=== PATIENT | male | born 1965 | race Caucasian/White ===

== ENCOUNTER 2017-06-12 09:37 | Emergency (ER) | payer BC ==
[2017-06-12 11:28] VITALS: BP 121/73
--- NOTE | 2017-06-12 11:47 | ED ---
Throat Pain/Nasal Congestion - HPI Summary HPI Summary: 51 yr old male with the complaint of right eye irritation, cloudy discharge and some lower eyelid swelling. Onset of symptoms was two days ago. No change in vision, No pain in the eye. No change in vision. - History of Current Complaint Chief Complaint: UCEye Time Seen by Provider: 06/12/17 11:32 - Allergies/Home Medications Allergies/Adverse Reactions: Allergies Allergy/AdvReac Type Severity Reaction Status Date / Time No Known Allergies Allergy Verified 06/12/17 11:28 Home Medications: Home Medications Aspirin [Aspirin 81 MG TAB] 162 mg PO PRN 06/12/17 [History] PMH/Surg Hx/FS Hx/Imm Hx Previously Healthy: Yes - Surgical History Surgery Procedure, Year, and Place: Bi-lat knee orthoscopic, appy Infectious Disease History: No Infectious Disease History: Denies: Traveled Outside the in Last 30 Days - Family History Known Family History: Positive: None - Social History Alcohol Use: Rare Substance Use Type: Reports: None Smoking Status (MU): Heavy Every Day Tobacco Smoker Type: Cigarettes Amount Used/How Often: 1/2 ppd Length of Time of Smoking/Using Tobacco: since age 13 Have You Smoked in the Last Year: Yes Review of Systems Positive: Drainage, Other - eyelid swelling All Other Systems Reviewed And Are Negative: Yes Physical Exam Triage Information Reviewed: Yes Vital Signs On Initial Exam: Initial Vitals Temp Pulse Resp BP Pulse Ox 98.4 F 74 16 121/73 100 06/12/17 11:18 06/12/17 11:18 06/12/17 11:18 06/12/17 11:18 06/12/17 11:18 Vital Signs Reviewed: Yes Appearance: Positive: Well-Appearing, No Pain Distress Skin: Positive: Warm Head/Face: Positive: Normal Head/Face Inspection Eyes: Positive: EOMI, Conjunctiva Inflammed - right greater than the left ENT: Positive: Normal ENT inspection, TMs normal Neck: Positive: Nontender Respiratory/Lung Sounds: Positive: Clear to Auscultation, Breath Sounds Present Cardiovascular: Positive: RRR. Negative: Murmur Musculoskeletal: Positive: Strength/ROM Intact Neurological: Positive: Sensory/Motor Intact, Alert, Oriented to Person Place, Time, CN Intact II-III Psychiatric: Positive: Normal Diagnostics - Vital Signs Vital Signs Temp Pulse Resp BP Pulse Ox 06/12/17 11:18 98.4 F 74 16 121/73 100 - Laboratory Lab Statement: Any lab studies that have been ordered have been reviewed, and results considered in the medical decision making process. EENT Course/Dx - Course Course Of Treatment: 51 yr old with conjunctivits, and lower eyelid cellulitis. DC home on sulfa eye drops and keflex. - Diagnoses Provider Diagnoses: Conjunctivitis, Cellulitis of right lower eyelid Discharge - Discharge Plan Condition: Good Disposition: HOME Prescriptions: Cephalexin CAP* [Keflex CAP*] 500 mg PO QID #40 cap Sulfacetamide 10 % OPTH.RAYMOND* [Sulamyd 10% Opth*] 1 drop BOTH EYES Q4H #1 btl Patient Education Materials: Conjunctivitis (ED), Cellulitis (ED) Forms: *Work Release Referrals: Paulina Giron MD [Medical Doctor] - 2 Days
== END 2017-06-12 11:56 | disposition home or self-care (01) ==
LOC: UCCORT 09:37
DX: H10.9 Unspecified conjunctivitis (principal); H00.032 Abscess of right lower eyelid; Z72.0 Tobacco use
CPT/HCPCS: 99202; G0463

== ENCOUNTER 2017-06-20 09:16 | Emergency (ER) | payer BC ==
[2017-06-20] MEDS ORDERED: Albuterol/Ipratropium NEB.SOL* Albuterol 2.5 MG/Ipratropium 0.5 MG 3 ML INH ONE (10:26)
[2017-06-20] MEDS ORDERED: predniSONE TAB* 20 MG PO ONE (10:26)
--- NOTE | 2017-06-20 10:28 | UC ---
Respiratory Complaint HPI - HPI Summary HPI Summary: 51 y/o male presents to the urgent care c/o persistent productive cough, Nasal congestion, with fever and SOB for the past week. Pt reports he was seen here at the clinic on 06/12/2017 for RT eye conjunctivitis. He was Rx ophthalmic drops and Cephalexin. His cough was improving at the beginning of the ABX treatment. but now has gotten worse since since now he is producing a green sputum. Pt has been taking Teraflu, Mucinex PO w/o any improvement of symptoms. Pt states he is a smoker. His fever is subjective at home with sweating at night time. Pt denies chest pain, abdominal Pain, N/V/D - History of Current Complaint Chief Complaint: UCRespiratory Stated Complaint: CHEST CONGESTION, COUGH Time Seen by Provider: 06/20/17 09:38 Hx Obtained From: Patient Onset/Duration: Gradual Onset, Lasting Weeks - 1 week, Still Present Severity Initially: Mild Severity Currently: Moderate Pain Intensity: 0 Pain Scale Used: 0-10 Numeric Character: Cough: Productive, Sputum Description: - green Aggravating Factors: Deep Breaths, Recumbent Position Alleviating Factors: OTC Meds Associated Signs And Symptoms: Positive: Dyspnea, Fever - subjective at home, Wheezing, URI, Nasal Congestion. Negative: Pleuritic Chest Pain - Risk Factors Pulmonary Embolism Risk Factors: Negative Cardiac Risk Factors: Negative, Smoking Pseudomonas Risk Factors: Negative Tuberculosis Risk Factors: Negative - Allergies/Home Medications Allergies/Adverse Reactions: Allergies Allergy/AdvReac Type Severity Reaction Status Date / Time No Known Allergies Allergy Verified 06/20/17 09:45 Home Medications: Home Medications Dextromethorphan-Guaifenesin [Mucinex Fast-Max Dm Max 20-400 mg/20Ml] 30 ml PO SEE INSTRUCTIONS PRN 06/20/17 [History Confirmed 06/20/17] PMH/Surg Hx/FS Hx/Imm Hx Previously Healthy: Yes - Pt denies PMHX - Surgical History Surgical History: Yes Surgery Procedure, Year, and Place: Bilateral Knee Arthroscopies, Appendectomy - Family History Known Family History: Positive: None - Pt denies FMHX - Social History Occupation: Employed Full-time Lives: With Family Alcohol Use: Rare Substance Use Type: None Smoking Status (MU): Heavy Every Day Tobacco Smoker Type: Cigarettes Amount Used/How Often: 1/2 PPD Length of Time of Smoking/Using Tobacco: Since Age 13 Have You Smoked in the Last Year: Yes - Immunization History Most Recent Influenza Vaccination: Not the 2016/2017 Season Review of Systems Constitutional: Fever - subjective at home Skin: Negative Eyes: Negative ENT: Nasal Discharge - yellowish discharge, Sinus Congestion Respiratory: Shortness Of Breath, Cough - productive with green sputum Cardiovascular: Negative Gastrointestinal: Negative Genitourinary: Negative Motor: Negative Neurovascular: Negative Musculoskeletal: Negative Neurological: Negative Psychological: Negative Is Patient Immunocompromised?: No All Other Systems Reviewed And Are Negative: Yes Physical Exam Triage Information Reviewed: Yes Appearance: Well-Appearing, No Pain Distress, Well-Nourished, Obese Vital Signs: Initial Vital Signs Temp 98.9 F 06/20/17 09:42 Pulse 88 06/20/17 09:42 Resp 20 06/20/17 09:42 BP 107/70 06/20/17 09:42 Pulse Ox 94 06/20/17 09:42 Vital Signs Reviewed: Yes Eye Exam: Normal Eyes: Positive: Conjunctiva Clear - PERRLA, EOMI, fundi grossly normal ENT: Positive: Normal ENT inspection, Hearing grossly normal, Pharynx normal, Nasal congestion - edematous and erythemaotus nasal mucosa, Nasal drainage - yellowish drainage, TMs normal. Negative: Tonsillar swelling, Tonsillar exudate Neck exam: Normal Neck: Positive: Supple, Nontender, No Lymphadenopathy Respiratory: Positive: Chest non-tender, No respiratory distress, No accessory muscle use, Wheezing - diffuse wheezing in both lungs Cardiovascular Exam: Normal Cardiovascular: Positive: RRR, No Murmur, Pulses Normal, Brisk Capillary Refill Abdominal Exam: Normal Abdomen Description: Positive: Nontender, No Organomegaly, Soft. Negative: CVA Tenderness (R), CVA Tenderness (L) Bowel Sounds: Positive: Present Musculoskeletal Exam: Normal Musculoskeletal: Positive: Strength Intact, ROM Intact, No Edema Neurological Exam: Normal Psychological Exam: Normal Skin Exam: Normal UC Diagnostic Evaluation - Laboratory O2 Sat by Pulse Oximetry: 94 Respiratory Course/Dx - Course Course Of Treatment: 51 y/o male presents to the urgent care c/o persistent productive cough, Nasal congestion, with fever and SOB for the past week. Pt reports he was seen here at the clinic on 06/12/2017 for RT eye conjunctivitis. He was Rx ophthalmic drops and Cephalexin. His cough was improving at the beginning of the ABX treatment. but now has gotten worse since since now he is producing a green sputum. Pt has been taking Teraflu, Mucinex PO w/o any improvement of symptoms. Pt states he is a smoker. His fever is subjective at home with sweating at night time. Pt denies chest pain, abdominal Pain, N/V/D. Hx Obtained. Pt with diffuse wheezing B/L lungs. Pt is an everyday smoker. Pt may be in a COPD exacerbation. Pt given prednisone 60mg PO and Duoneb treatment to alleviate symptoms. Pt tolerated well treatment and and states "I can breath better" , Auscultation after treatment: wheezing decreased. Chest X-ray ordered. Impression: No cardiopulmonary abnormality observed. Pt Rx Doxyxycline PO for bronchitis and Duoneb neb and inhaler to continue with treatment. Also given script for nebulizer and supplies. Prednisone taper dose to alleviate symptoms. Pt's O2sat didn't improved. It decreased to 92. Pt was advised to walk to see if it increased. O2sat the same. Pt stated "I feel better and breath better. Pt and strongly advised to go immediately to the ER if SOB develops or chest pain. Pt also advised to f/u with PCP in 2-3 days for further management since PT probably has COPD. Pt understood and agreed with plan of care and left the clinic feeling better, A&OX3 and hemodinamically stable. - Differential Dx/Diagnosis Differential Diagnosis/HQI/PQRI: Asthma, Bronchitis, Exacerbation Of COPD Provider Diagnoses: 1- Acute bronchitis. 2-Smoker Discharge - Discharge Plan Condition: Stable Disposition: HOME Prescriptions: Albuterol/Ipratropium NEB.RAYMOND* [Duoneb (Albuterol 2.5 MG/Ipratropium 0.5 MG)] 1 neb INH Q6H PRN #1 box PRN Reason: Sob/Wheezing Albuterol/Ipratropium RESP(NF) [Combivent Respimat (NF)] 1 aer IN Q6HR #1 aer DOXYcycline CAP(*) [DOXYcycline 100MG CAP(*)] 100 mg PO BID #20 cap predniSONE TAB* [Deltasone TAB*] 20 mg PO DAILY #8 tab Patient Education Materials: Acute Bronchitis (ED), COPD (Chronic Obstructive Pulmonary Disease) (ED) Forms: *Work Release Referrals: JAMSHID Truong [Primary Care Provider] - 3 Days Additional Instructions: 1-Please take full course of antibiotic to avoid resistance. 2-Continue taking the Mucinex PO tabs to alelviate coughas directed and use the albuterol/ipratropium inhaler to alleviate bronchospasm. Increase fluid intake , rest and eat well. 3- If symptoms do not improve or worsen or your develop SOB with fever and severe wheezing please go immediately to the ER further evaluation and treatment. 4- F/u with your PCP in 2-3 days for further management on your COPD
--- NOTE | 2017-06-20 10:37 | RAD ---
HISTORY: Persistent cough, fever, shortness of breath COMPARISONS: None VIEWS: 4: Frontal dual-energy and lateral views of the chest. FINDINGS: CARDIOMEDIASTINAL SILHOUETTE: The cardiomediastinal silhouette is normal. NENITA: The nenita are normal. PLEURA: The costophrenic angles are sharp. No pleural abnormalities are noted. LUNG PARENCHYMA: The lungs are clear. ABDOMEN: The upper abdomen is clear. There is no subphrenic gas. BONES AND SOFT TISSUES: No bone or soft tissue abnormalities are noted. OTHER: None. IMPRESSION: NO ACTIVE CARDIOPULMONARY DISEASE.
[2017-06-20 11:32] VITALS: BP 111/74
== END 2017-06-20 11:33 | disposition home or self-care (01) ==
LOC: UCCORT 09:16
DX: J20.9 Acute bronchitis, unspecified (principal); F17.200 Nicotine dependence, unspecified, uncomplicated
CPT/HCPCS: 71020; 99213; A9270-GY; G0463; J7512